=== PATIENT | female | born 1930 | race Caucasian/White ===

== ENCOUNTER 2019-07-23 15:55 | Emergency (ER) | payer OTHER ==
[2019-07-23 16:09] VITALS: BMI 25.7
[2019-07-23 16:44] VITALS: TEMP 98.5
[2019-07-23 17:16] LABS: BASO % 0.5 % (0-2.0); EOS % 0.1 % (0-4.5); HEMATOCRIT 44.1 % (32.4-45.2); HEMOGLOBIN 14.7 GM/dL (10.7-15.3); MCH 29.1 pg (25.7-33.7); MCHC 33.5 g/dl (32.0-36.0); MEAN CELL VOLUME 87.1 fl (80-96); MEAN PLT VOLUME 9.3 fl (7.5-11.1); MONO % 7.8 % (3.8-10.2); NEUT % 66.6 % (42.8-82.8); PLATELET COUNT 290 K/MM3 (134-434); RBC 5.06 M/mm3 (3.60-5.2); RDW 14.2 % (11.6-15.6); WHITE BLOOD COUNT 6.8 K/mm3 (4.0-10.0)
[2019-07-23 17:52] LABS: ALBUMIN 4.5 g/dl (3.4-5.0); BILIRUBIN,TOTAL 0.7 mg/dL (0.2-1); BLOOD UREA NITROGEN 12.5 mg/dL (7-18); CALCIUM 9.5 mg/dL (8.5-10.1); CREATININE 1.1 mg/dL (0.55-1.3); POTASSIUM 3.4 mmol/L (3.5-5.1); TOT PROT 8.6 g/dl (6.4-8.2)
[2019-07-23 18:08] LABS: PH,URINE 6.5 (5.0-8.0); URINE APPEARANCE CLEAR; URINE BILIRUBIN NEGATIVE (NEGATIVE); URINE COLOR YELLOW; URINE GLUCOSE (UA) NEGATIVE (NEGATIVE); URINE KETONE NEGATIVE (NEGATIVE); URINE LEUK ESTERASE NEGATIVE (NEGATIVE); URINE NITRITE NEGATIVE (NEGATIVE); URINE PROTEIN NEGATIVE (NEGATIVE); URINE UROBILINOGEN 0.2 mg/dL (0.2-1.0)
[2019-07-23] MEDS ORDERED: METOPROLOL TARTRATE 50 MG TABLET (FP) ONE (18:13)
[2019-07-23] MEDS ORDERED: METOPROLOL TARTRATE 50 MG TABLET (FP) PO ONE (18:14)
--- NOTE | 2019-07-23 18:15 | PDOC ---
History of Present Illness - General Chief Complaint: Blood Pressure Problem Stated Complaint: HYPERTENSION Time Seen by Provider: 07/23/19 16:23 History Source: Patient, Family - History of Present Illness Initial Comments: 07/23/19 18:28 Ms. Barrios is an 88 y/o Maltese speaking woman with hx HTN, anxiety, hypothyroidism p/w asymptomatic hypertension from her PCP office (Dr. Caruso ). She is accompanied by her niece. She reports that in the past she has had headaches when her blood pressure is high, but denies any headaches, chest pain , shortness of breath, or rapid vision changes at this time. She reports that her niece has been monitoring her blood pressure for the last week and noted that she has been in the 200s/90s, and became concerned and brought her to her primary care provider. When she was hypertensive in the office he encouraged them to seek evaluation in the ED. She reports that she has taken her blood pressure medications today and always takes them as directed. Past History - Past Medical History Allergies/Adverse Reactions: Allergies Allergy/AdvReac Type Severity Reaction Status Date / Time No Known Allergies Allergy Verified 07/23/19 16:09 Home Medications: Ambulatory Orders Levothyroxine Sodium [Unithroid] 137 mcg PO DAILY 07/21/15 Olmesartan/Hydrochlorothiazide [Benicar Hct 40-25 mg Tablet] 1 each PO DAILY Metoprolol Tartrate 50 mg PO DAILY 03/31/16 COPD: No HTN: Yes Thyroid Disease: Yes (hypo) - Immunization History Immunization Up to Date: No - Psycho Social/Smoking Cessation Hx Smoking Status: No Smoking History: Never smoked Number of Cigarettes Smoked Daily: 0 Hx Alcohol Use: No Drug/Substance Use Hx: No Substance Use Type: None Review of Systems - Review of Systems Able to Perform ROS?: Yes Comments:: 07/23/19 18:50 ROS: GENERAL/CONSTITUTIONAL: No fever or chills. No weakness. HEAD, EYES, EARS, NOSE AND THROAT: No change in vision. No ear pain or discharge. No sore throat. CARDIOVASCULAR: No chest pain or shortness of breath RESPIRATORY: No cough, wheezing, or hemoptysis. GASTROINTESTINAL: No nausea, vomiting, diarrhea or constipation. GENITOURINARY: No dysuria, frequency, or change in urination. MUSCULOSKELETAL: No joint or muscle swelling or pain. No neck or back pain. SKIN: No rash NEUROLOGIC: No headache, vertigo, loss of consciousness, or change in strength/ sensation. ENDOCRINE: No increased thirst. No abnormal weight change HEMATOLOGIC/LYMPHATIC: No anemia, easy bleeding, or history of blood clots. ALLERGIC/IMMUNOLOGIC: No hives or skin allergy. *Physical Exam - Vital Signs Last Vital Signs Temp Pulse Resp BP Pulse Ox 98.5 F 68 17 177/85 H 99 07/23/19 16:43 07/23/19 17:54 07/23/19 17:54 07/23/19 17:54 07/23/19 17:54 - Physical Exam 07/23/19 18:50 PE: GENERAL: Awake, alert, and fully oriented, in no acute distress HEAD: No signs of trauma, normocephalic, atraumatic EYES: PERRLA, EOMI, sclera anicteric, conjunctiva clear ENT: Auricles normal inspection, hearing grossly normal, nares patent, oropharynx clear without exudates. Moist mucosa NECK: Normal ROM, supple, no lymphadenopathy, JVD, or masses LUNGS: No distress, speaks full sentences, clear to auscultation bilaterally HEART: Regular rate and rhythm, normal S1 and S2, no murmurs, rubs or gallops, peripheral pulses normal and equal bilaterally. ABDOMEN: Soft, nontender, normoactive bowel sounds. No guarding, no rebound. No masses EXTREMITIES : Normal inspection, Normal range of motion, no edema. No clubbing or cyanosis NEUROLOGICAL: Cranial nerves II through XII grossly intact. Normal speech, normal gait, no focal sensorimotor deficits SKIN: Warm, Dry, normal turgor, no rashes or lesions noted Heart Score/ECG Review - History History: Slightly suspicious - Electrocardiogram EKG: Normal - Age Age: >/= 65 - Risk Factors Risk Factors Heart Score: Yes Hx Hypercholesterolemia, Yes Hx Hypertension Based on the list above the patient has:: 1-2 risk factors - Troponin Troponin: </= normal limit - Score Heart Score - Total: 3 ED Treatment Course - LABORATORY CBC & Chemistry Diagram: 07/23/19 17:06 07/23/19 17:06 - ADDITIONAL ORDERS Additional order review: Laboratory Results 07/23/19 07/23/19 07/23/19 17:06 17:06 17:06 Sodium 135 L Potassium 3.4 L Chloride 97 L Carbon Dioxide 31 Anion Gap 7 L BUN 12.5 Creatinine 1.1 Est GFR (CKD-EPI)AfAm 52.65 Est GFR (CKD-EPI)NonAf 45.42 Random Glucose 96 Calcium 9.5 Total Bilirubin 0.7 AST 29 ALT 33 Alkaline Phosphatase 78 Creatine Kinase 115 Troponin I < 0.02 Total Protein 8.6 H Albumin 4.5 Urine Color Yellow Urine Appearance Clear Urine pH 6.5 Ur Specific [place] 1.006 L Urine Protein Negative Urine Glucose (UA) Negative Urine Ketones Negative Urine Blood Negative Urine Nitrite Negative Urine Bilirubin Negative Urine Urobilinogen 0.2 Ur Leukocyte Esterase Negative 07/23/19 17:06 RBC 5.06 MCV 87.1 MCHC 33.5 RDW 14.2 MPV 9.3 Neutrophils % 66.6 Lymphocytes % 25.0 D Monocytes % 7.8 Eosinophils % 0.1 D Basophils % 0.5 Medical Decision Making - Medical Decision Making 07/23/19 18:50 88F w/hx HTN, HLD p/w asymptomatic hypertension referred from primary care provider. Plan: CBC CMP UA EKG Dispo: Discharge with PCP follow up --- On reassessment, BP still elevated. Plan for additional dose of home metoprolol. --- BP - 177/91 Plan for discharge with PCP follow up. Discharge - Discharge Information Problems reviewed: Yes Clinical Impression/Diagnosis: Hypertension Qualifiers: Hypertension type: unspecified Qualified Code(s): I10 - Essential (primary) hypertension Condition: Stable Disposition: HOME - Admission No - Follow up/Referral Referrals: Aniket Marcum MD [Primary Care Provider] - - Patient Discharge Instructions Patient Printed Discharge Instructions: DI for High Blood Pressure Additional Instructions: You were seen in the ER for high blood pressure. Your EKG and labs were normal. Please follow up with your primary care provider as soon as possible, in the next 2 days, they will likely need to adjust your home medications. Please return to the ER if you develop weakness, chest pain, shortness of breath, fatigue, sudden changes in vision. Make sure to take your blood pressure medications as directed. - Post Discharge Activity
--- NOTE | 2019-07-23 18:26 | PDOC ---
Attending Attestation - Resident Resident Name: Marino Hall - ED Attending Attestation I have performed the following: I have examined & evaluated the patient, The case was reviewed & discussed with the resident, I agree w/resident's findings & plan - HPI HPI: 07/23/19 18:26 Barrios 88 y/o with h/o HTN p/w asymptomatic HTN, sent in by PMD Dr Salmeron for evaluation. X 1 week with elevated BP, 200s/100s noted at home No headache, No chest pain or SOB, no weakness/paresthesias. Last change of her combo drug olmesartan HCTZ ~3 months ago Denies salty food intake, stressors or triggers, no otc Using properly fitted cuff. 07/23/19 18:26 - Physicial Exam PE: 07/23/19 18:25 Agree with the resident's HPI and PE as documented in the electronic medical record. NAD, well appearing, EOMI, PERRL, nl conjunctiva, anicteric; neck supple. lungs clear, RRR, abdomen soft nontender. No rebound, no guarding. Back nontender. FERNANDEZ x4, no focal neuro deficits. No peripheral edema. normal color for ethnicity , WWP. - Medical Decision Making 07/23/19 18:26 Vital Signs Temp Pulse Resp BP Pulse Ox 98.5 F 68 17 177/85 H 99 07/23/19 16:43 07/23/19 17:54 07/23/19 17:54 07/23/19 17:54 07/23/19 17:54 No e/o end organ damage, EKG is sinus rhythm, old RBBB No elevations Lytes and CBC wnl. No anemia. UA neg for protein, glucose or s/s infection Pt remains asymptomatic, no events. Neuro intact. Given additional dose of metoprolol 50mg x1, BP stable at 170s/90s - likely autoregulated. no further treatment indicated, requires repeat eval and clinical check with pmd who will adjust her doses. diet and exercise advised. avoid salty foods. Pt to be discharged in stable condition. Patient and family made aware of clinical impression, treatment recommendations and disposition plan, return precautions discussed (including but not limited to new or persistent/worsening symptoms, pain, fevers, or signs of infection, chest pain, respiratory distress , inability to tolerate oral intake, dehydration, syncope, or neurologic changes ). Follow up with PMD as recommended, follow up information provided, take medications as instructed for duration of time. continue with supportive care, avoid triggers and precipitants. All questions answered to patient's satisfaction and expressed understanding and comfort with this. At the time of discharge, the patient is alert, clinically improved, tolerating po and verbalizes understanding of instructions, satisfied with the care received and felt comfortable with the plan. Patient does not suffer from an acute life- threatening medical condition at this time and is safe for outpatient follow- up. 07/23/19 18:26 07/23/19 18:26 07/24/19 12:02 Heart Score/ECG Review #1 ECG reviewed & interpreted by me at: 17:40 General ECG Interpretation: Sinus Rhythm, Normal Rate, Normal Intervals 07/23/19 18:25 EKG normal sinus rhythm at 71 bpm, wide QRS, RBBB, ST and T wave segments and morphology normal. Nonspecific T wave abnormalities - similar to prior EKG at 1740
[2019-07-23 18:37] VITALS: BP 177/91; PULSE 63
--- NOTE | 2019-07-24 13:34 | EKG ---
Test Reason : Blood Pressure : / mmHG Vent. 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
== END 2019-07-23 18:52 | disposition home or self-care (01) ==
LOC: JER 15:55
DX: I10 Essential (primary) hypertension (principal); E03.9 Hypothyroidism, unspecified; F41.9 Anxiety disorder, unspecified
CPT/HCPCS: 36415; 80053; 81003; 82550; 84484; 85025; 93005; 93010; 99284-25